=== PATIENT | female | born 1995 | race Caucasian/White ===

== ENCOUNTER 2017-11-22 08:38 | Emergency (ER) | payer MEDICAID ==
[2017-11-22] MEDS ORDERED: predniSONE 10 MG Tab ONE (09:00)
[2017-11-22] MEDS ORDERED: Triamcinolone Acetonide 40 MG/ML 1 ML MDV ONE (09:27)
--- NOTE | 2017-11-22 12:06 | EDM.PDOC ---
ED HPI GENERAL MEDICAL PROBLEM - General Stated Complaint: poison renuka Time Seen by Provider: 11/22/17 08:45 Source of Information: Reports: Patient History Limitations: Reports: No Limitations - History of Present Illness INITIAL COMMENTS - FREE TEXT/NARRATIVE: According to patient she claims that they had bought a new home outside the town limits here in [place] and there is large patch of the poison Renuka in her backyard. Pt has not been in the yard, but her pet dogs to go out, and she played with them. Last night noticed some blistering burning lesions over the hand and legs and the rash is very itchy and now have spread over the abdomen and thigh. No fever or chills. No weakness. Pt has tried some Benadryl last night with no relief. Onset Date: 11/21/17 Duration: Getting Worse Location: Reports: Generalized Quality: Reports: Burning Severity: Moderate Improves with: Reports: None Worsens with: Reports: None Associated Symptoms: Reports: Rash. Denies: Confusion, Chest Pain, Cough, Fever /Chills, Headaches, Nausea/Vomiting, Seizure, Shortness of Breath, Syncope, Weakness - Related Data Allergies Allergy/AdvReac Type Severity Reaction Status Date / Time No Known Allergies Allergy Verified 11/22/17 09:14 Home Meds: Home Meds FLUoxetine HCl [Fluoxetine HCl] 20 mg PO DAILY 11/22/17 [History] ED ROS GENERAL - Review of Systems Review Of Systems: See Below Constitutional: Denies: Fever, Chills HEENT: Denies: Rhinitis, Sinus Problem, Throat Pain, Throat Swelling Respiratory: Denies: Shortness of Breath, Wheezing, Pleuritic Chest Pain, Cough , Sputum Cardiovascular: Denies: Chest Pain, Lightheadedness, Syncope GI/Abdominal: Denies: Nausea, Vomiting : Denies: Dysuria Skin: Reports: Pruritis, Rash. Denies: Bruising, Erythema ED EXAM, GENERAL - Physical Exam Exam: See Below Exam Limited By: No Limitations General Appearance: Alert, WD/WN, No Apparent Distress Eye Exam: Bilateral Eye: EOMI, PERRL Ears: Normal External Exam, Normal Canal, Hearing Grossly Normal, Normal TMs Ear Exam: Bilateral Ear: Auricle Normal, Canal Normal, TM normal Nose: Normal Inspection, Normal Mucosa, No Blood Throat/Mouth: Normal Inspection, Normal Lips, Normal Teeth, Normal Gums, Normal Oropharynx, Normal Voice, No Airway Compromise Head: Atraumatic, Normocephalic Neck: Normal Inspection, Supple, Non-Tender, Full Range of Motion Respiratory/Chest: No Respiratory Distress, Lungs Clear, Normal Breath Sounds, No Accessory Muscle Use, Chest Non-Tender Cardiovascular: Normal Peripheral Pulses, Regular Rate, Rhythm, No Edema, No Gallop, No JVD, No Murmur, No Rub Skin Exam: Warm, Intact, Rash (There are irregular random area of liner blistery lesion , varigated size and shapes over the upper and lower extremities and few over the abdomen. there margins are pinish red. + excoriation of skin) Course - Vital Signs Text/Narrative:: Pt reassured that she has developed poison Renuka dermatitis. She did receive kenalog 40mg Im and also started her on quick tapering dose of prednisone. Medication counselling done. Advised Benadryl 50mg 3 times daily. Calamine lotion over the areas of the rash. Avoid scratching the lesions. followup in clinic if symptoms worsen. Last Recorded V/S: Last Vital Signs Temp 98.6 F 11/22/17 10:26 Pulse 111 H 11/22/17 10:26 Resp 16 11/22/17 10:26 BP 102/73 11/22/17 10:26 Pulse Ox 98 11/22/17 10:26 - Orders/Labs/Meds Meds: Medications Discontinued Medications Generic Name Dose Route Start Last Admin Trade Name Dustin PRN Reason Stop Dose Admin Triamcinolone Acetonide Confirm 11/22/17 09:27 11/22/17 09:26 Kenalog-40 Administered 11/22/17 09:28 40 mg Dose Administration 40 mg .ROUTE .STK-MED ONE Departure - Departure Time of Disposition: 09:30 Disposition: Home, Self-Care 01 Condition: Good Clinical Impression: Poison renuka dermatitis - Discharge Information Referrals: PCP,None [Primary Care Provider] - Additional Instructions: Pt reassured that she has developed poison Renuka dermatitis. She did receive kenalog 40mg Im and also started her on quick tapering dose of prednisone. Medication counselling done. Advised Benadryl 50mg 3 times daily. Calamine lotion over the areas of the rash. Avoid scratching the lesions. followup in clinic if symptoms worsen. - Problem List & Annotations (1) Poison renuka dermatitis SNOMED Code(s): 843572354 Code(s): L23.7 - ALLERGIC CONTACT DERMATITIS DUE TO PLANTS, EXCEPT FOOD Status: Acute - Problem List Review Problem List Initiated/Reviewed/Updated: Yes - Assessment/Plan Assessment:: Poison Renuka dermatitis Plan: Pt reassured that she has developed poison Renuka dermatitis. She did receive kenalog 40mg Im and also started her on quick tapering dose of prednisone. Medication counselling done. Advised Benadryl 50mg 3 times daily. Calamine lotion over the areas of the rash. Avoid scratching the lesions. followup in clinic if symptoms worsen.
[2017-11-22] MEDS ORDERED: Triamcinolone Acetonide 40 MG/ML 1 ML MDV IM ONE (12:12)
== END 2017-11-22 09:35 | disposition home or self-care (01) ==
LOC: LB.ED 08:38
DX: L23.7 Allergic contact dermatitis due to plants, except food (principal)
CPT/HCPCS: 96372; 99282-25; A9270-GY; J3301